=== PATIENT | female | born 1980 | race African-American/Black ===

== ENCOUNTER 2019-06-30 18:40 | Emergency (ER) | payer OTHER ==
[2019-06-30 19:05] VITALS: BP 148/84; PULSE 78; TEMP 97.9; BMI 61.3
--- NOTE | 2019-06-30 19:06 | PDOC ---
Rapid Medical Evaluation Chief Complaint: Sore Throat Time Seen by Provider: 06/30/19 19:02 Medical Evaluation: 06/30/19 19:03 I performed a brief in-person evaluation of this patient. 38-year-old female with asthma (no admissions x 20 yrs) and HTN with 3 weeks of throat pain, cough productive of green and blood-tinged sputum. Seen in Urgent Care and given a course of Tamiflu without positive flu test, which she completed. Symptoms persist. Pertinent physical exam findings: Alert, oriented. No pharyngeal erythema or tonsillar exudates. Lungs CTAB. I have ordered the following: CXR Patient to proceed to the ED for further evaluation. Discharge Disposition - Diagnosis Cough - Discharge Dispostion Condition at time of disposition: Stable - Referrals - Patient Instructions - Post Discharge Activity
--- NOTE | 2019-06-30 19:55 | PDOC ---
History of Present Illness - General Chief Complaint: Sore Throat Stated Complaint: SORE THROAT Time Seen by Provider: 06/30/19 19:02 History Source: Patient, Parent(s) Exam Limitations: Clinical Condition - History of Present Illness Is this a multiple visit Asthma Patient?: No Timing/Duration: reports: other (4 days) Past History - Past History Allergies/Adverse Reactions: Allergies amoxicillin Allergy (Verified 06/30/19 19:05) Penicillins Allergy (Verified 06/30/19 19:05) - Social History Smoking Status: Never smoked Review of Systems - Review of Systems Able to Perform ROS?: Yes Is the patient limited Austrian proficient: No Constitutional: Yes: Chills, Fever, Malaise HEENTM: Yes: Symptoms Reported, See HPI, Nose Congestion, Throat Pain. No: Eye Pain, Blurred Vision, Tearing, Recent change in vision, Double Vision, Cataracts , Ear Pain, Ocular Prothesis, Ear Discharge, Nose Pain, Tinnitus, Nose Bleeding , Hearing Loss, Throat Swelling, Mouth Pain, Dental Problems, Difficulty Swallowing, Mouth Swelling, Other Respiratory: Yes: Symptoms reported, See HPI, Cough. No: Orthopnea, Shortness of Breath, SOB with Exertion, SOB at Rest, Stridor, Wheezing, Productive cough, Hemoptysis, Other Cardiac (ROS): No: Symptoms Reported, See HPI, Chest Pain, Edema, Irregular Heart Rate, Lightheadedness, Palpitations, Syncope, Chest Tightness, Other ABD/GI: No: Symptoms Reported, See HPI, Constipated, Diarrhea, Nausea, Vomiting , Abdominal cramping All Other Systems: Reviewed and Negative *Physical Exam - Vital Signs Last Vital Signs Temp Pulse Resp BP Pulse Ox 97.9 F 78 18 148/84 100 06/30/19 19:02 06/30/19 19:02 06/30/19 19:02 06/30/19 19:02 06/30/19 19:02 - Physical Exam 06/30/19 19:54 GENERAL: Well developed, well nourished. Awake and alert. No acute distress. HEENT: Normocephalic, atraumatic. PERRLA, EOMI. No conjunctival pallor. Sclera are non-icteric. Moist mucous membranes. Oropharynx is clear. NECK: Supple. Full ROM. CARDIOVASCULAR: Regular rate and rhythm. No murmurs, rubs, or gallops. Distal pulses are 2+ and symmetric. PULMONARY: No evidence of respiratory distress. Lungs clear to auscultation bilaterally. No wheezing, rales or rhonchi. ABDOMINAL: Soft. Non-tender. Non-distended. No rebound or guarding. No organomegaly. Normoactive bowel sounds. MUSCULOSKELETAL Normal range of motion at all joints. SKIN: Warm and dry. Normal capillary refill. No rashes. No jaundice. NEUROLOGICAL: Alert, awake, appropriate. Gait is normal without ataxia. PSYCHIATRIC: Cooperative. Good eye contact. Appropriate mood General Appearance: Yes: Nourished, Appropriately Dressed. No: Apparent Distress Discharge - Discharge Information Clinical Impression/Diagnosis: Cough Condition: Stable - Follow up/Referral - Patient Discharge Instructions - Post Discharge Activity
--- NOTE | 2019-06-30 20:21 | PDOC ---
History of Present Illness - General Chief Complaint: Sore Throat Stated Complaint: SORE THROAT Time Seen by Provider: 06/30/19 19:02 History Source: Patient Exam Limitations: Clinical Condition - History of Present Illness Initial Comments: 06/30/19 20:53 Patient with no significant past medical history present with complaint of 2 weeks history of persistent cough, nasal congestion, sore throat and runny nose. Patient reported she was seen in urgent care over week ago for symptoms and was prescribed Tamiflu for suspected influenza infection but has not been getting better. Patient denies fevers. Reports cough intermittently productive with yellow sputum. Denies any sick contact or recent travel Is this a multiple visit Asthma Patient?: No Timing/Duration: other (2 weeks) Past History - Past Medical History Allergies/Adverse Reactions: Allergies Allergy/AdvReac Type Severity Reaction Status Date / Time amoxicillin Allergy Verified 06/30/19 19:05 Penicillins Allergy Verified 06/30/19 19:05 Home Medications: Ambulatory Orders Benzonatate [Tessalon Pearls -] 100 mg PO Q8H PRN #21 capsule 06/30/19 Ipratropium [place] 2 spray NS BID PRN 5 Days #1 spray 06/30/19 Methylprednisolone [Medrol Dose Derick] 4 mg PO ASDIR #21 tablet 06/30/19 Montelukast Na [Singulair -] 10 mg PO DAILY #7 tablet 06/30/19 - Psycho Social/Smoking Cessation Hx Smoking History: Never smoked Have you smoked in the past 12 months: No Information on smoking cessation initiated: No Hx Alcohol Use: No Drug/Substance Use Hx: No Review of Systems - Review of Systems Able to Perform ROS?: Yes Is the patient limited Frisian proficient: No Constitutional: Yes: Malaise. No: Chills, Fever HEENTM: Yes: Symptoms Reported, See HPI, Nose Congestion, Throat Pain. No: Eye Pain, Blurred Vision, Tearing, Recent change in vision, Double Vision, Cataracts , Ear Pain, Ocular Prothesis, Ear Discharge, Nose Pain, Tinnitus, Nose Bleeding , Hearing Loss, Throat Swelling, Mouth Pain, Dental Problems, Difficulty Swallowing, Mouth Swelling, Other Respiratory: Yes: Symptoms reported, See HPI, Cough. No: Orthopnea, Shortness of Breath, SOB with Exertion, SOB at Rest, Stridor, Wheezing, Productive cough, Hemoptysis, Other Cardiac (ROS): No: Symptoms Reported, See HPI, Chest Pain, Edema, Irregular Heart Rate, Lightheadedness, Palpitations, Syncope, Chest Tightness, Other ABD/GI: No: Symptoms Reported, See HPI, Constipated, Diarrhea, Nausea, Vomiting , Abdominal cramping All Other Systems: Reviewed and Negative *Physical Exam - Vital Signs Last Vital Signs Temp Pulse Resp BP Pulse Ox 97.9 F 78 18 148/84 100 06/30/19 19:02 06/30/19 19:02 06/30/19 19:02 06/30/19 19:02 06/30/19 19:02 - Physical Exam 06/30/19 20:21 GENERAL: Well developed, well nourished. Awake and alert. No acute distress. HEENT: Normocephalic, atraumatic. PERRLA, EOMI. No conjunctival pallor. Sclera are non-icteric. Moist mucous membranes. Oropharynx is clear. NECK: Supple. Full ROM. CARDIOVASCULAR: Regular rate and rhythm. No murmurs, rubs, or gallops. Distal pulses are 2+ and symmetric. PULMONARY: No evidence of respiratory distress. Lungs clear to auscultation bilaterally. No wheezing, rales or rhonchi. ABDOMINAL: Soft. Non-tender. Non-distended. No rebound or guarding. No organomegaly. Normoactive bowel sounds. MUSCULOSKELETAL Normal range of motion at all joints. SKIN: Warm and dry. Normal capillary refill. No rashes. No jaundice. NEUROLOGICAL: Alert, awake, appropriate. Gait is normal without ataxia. PSYCHIATRIC: Cooperative. Good eye contact. Appropriate mood General Appearance: Yes: Nourished, Appropriately Dressed. No: Apparent Distress Medical Decision Making - Medical Decision Making 06/30/19 20:54 Patient with no significant past medical history present with complaint of 2 weeks history of persistent cough, nasal congestion, sore throat and runny nose. Patient reported she was seen in urgent care over week ago for symptoms and was prescribed Tamiflu for suspected influenza infection but has not been getting better. Patient denies fevers. Reports cough intermittently productive with yellow sputum. Denies any sick contact or recent travel Exam unremarkable with lungs clear to auscultation bilateral. Patient afebrile. No pharyngeal erythema. Rapid strep test done negative for strep. Chest x-ray shows no pneumonia acute infiltrate. Patient symptoms likely viral URI and stable for discharge on Tessalon Perles as needed for cough and Medrol Derick due to cough over 2 weeks and Atrovent nasal spray for nasal congestion with advised to increase fluid intake and follow-up with primary care Discharge - Discharge Information Problems reviewed: Yes Clinical Impression/Diagnosis: Cough URI (upper respiratory infection) Qualifiers: URI type: unspecified URI Qualified Code(s): J06.9 - Acute upper respiratory infection, unspecified Pharyngitis Qualifiers: Pharyngitis/tonsillitis etiology: unspecified etiology Qualified Code(s): J02.9 - Acute pharyngitis, unspecified Condition: Stable Disposition: HOME - Admission No - Additional Discharge Information Prescriptions: Benzonatate [Tessalon Pearls -] 100 mg PO Q8H PRN #21 capsule PRN Reason: Cough Ipratropium [place] 2 spray NS BID PRN 5 Days #1 spray PRN Reason: nasal congestion Methylprednisolone [Medrol Dose Derick] 4 mg PO ASDIR #21 tablet Montelukast Na [Singulair -] 10 mg PO DAILY #7 tablet - Follow up/Referral - Patient Discharge Instructions Patient Printed Discharge Instructions: DI for Viral Upper Respiratory Infection -- Adult Additional Instructions: Your chest x-ray shows no pneumonia or bronchitis. symptoms likely caused by upper respiratory infection. Take prescribed medication as prescribed for cough and congestion. Increase fluid intake. Follow-up with primary care - Post Discharge Activity
== END 2019-06-30 21:28 | disposition home or self-care (01) ==
LOC: JERFT 18:40
DX: J06.9 Acute upper respiratory infection, unspecified (principal); J02.9 Acute pharyngitis, unspecified; Z88.0 Allergy status to penicillin
CPT/HCPCS: 71046-TC-FY; 87070; 87880; 99281-25

== ENCOUNTER 2022-09-07 15:24 | Emergency (ER) | payer OTHER ==
[2022-09-07 15:29] VITALS: RESP 18; BMI 59.5
[2022-09-07 17:12] LABS: BASO % 0.6 % (0-2.0); EOS % 8.2 % (0-4.5); HEMATOCRIT 37.1 % (32.4-45.2); LYMPH % 36.9 % (8-40); MCH 25.9 pg (25.7-33.7); MCHC 32.4 g/dl (32.0-36.0); MEAN PLT VOLUME 8.7 fl (7.5-11.1); MONO % 13.4 % (3.8-10.2); NEUT % 40.9 % (42.8-82.8); PLATELET COUNT 235 10^3/uL (134-434); RBC 4.64 M/mm3 (3.60-5.2); RDW 14.7 % (11.6-15.6); WHITE BLOOD COUNT 4.6 K/mm3 (4.0-10.0)
[2022-09-07 17:14] LABS: EPI CELLS >36 /uL (0-25.1); HYALINE CASTS 2 /uL (0-3.1); URINE APPEARANCE CLOUDY; URINE BACTERIA 683 /uL (0-1359); URINE BILIRUBIN NEGATIVE (NEGATIVE); URINE COLOR ORANGE; URINE GLUCOSE (UA) NEGATIVE (NEGATIVE); URINE KETONE NEGATIVE (NEGATIVE); URINE LEUK ESTERASE 1+ (NEGATIVE); URINE NITRITE NEGATIVE (NEGATIVE); URINE PROTEIN 1+ (NEGATIVE); URINE RBC 4600 /uL (0-23.9); URINE WBC 94 /uL (0-25.8)
[2022-09-07 17:31] LABS: ALBUMIN 3.5 g/dl (3.4-5.0); BLOOD UREA NITROGEN 10.6 mg/dL (7-18); CALCIUM 9.4 mg/dL (8.5-10.1)
[2022-09-07 17:34] LABS: CREATININE 0.9 mg/dL (0.55-1.3)
[2022-09-07 17:37] LABS: BILIRUBIN,TOTAL 0.4 mg/dL (0.2-1); TOT PROT 8.2 g/dl (6.4-8.2)
[2022-09-07] MEDS ORDERED: SULFAMETHOXAZOLE/TRIMETHOPRIM 800MG/160MG D.S. TABLET PO ONE (18:28)
[2022-09-07] MEDS ORDERED: ACETAMINOPHEN 1000 MG/100 ML BAG IVPB ONE (18:37)
[2022-09-07] MEDS ORDERED: SULFAMETHOXAZOLE/TRIMETHOPRIM 800MG/160MG D.S. TABLET ONE (18:43)
[2022-09-07] MEDS ORDERED: ACETAMINOPHEN INJECTION 100 ML IVPB ONE (18:43)
[2022-09-07] MEDS ORDERED: KETOROLAC TROMETHAMINE 30 MG/1 ML VIAL IVPUSH ONE (22:52)
[2022-09-07] MEDS ORDERED: KETOROLAC TROMETHAMINE 30 MG/1 ML VIAL ONE (22:55)
[2022-09-07 23:57] VITALS: BP 129/79; PULSE 84; TEMP 97.9
== END 2022-09-08 | disposition home or self-care (01) ==
LOC: JER 15:24
PROC: 3E033NZ Introduction of Analgesics, Hypnotics, Sedatives into Peripheral Vein, Percutaneous Approach (ICD-10-PCS; principal; 2022-09-07)
PROC: 3E0333Z Introduction of Anti-inflammatory into Peripheral Vein, Percutaneous Approach (ICD-10-PCS; 2022-09-07)
DX: D25.9 Leiomyoma of uterus, unspecified (principal); N39.0 Urinary tract infection, site not specified; K57.90 Diverticulosis of intestine, part unspecified, without perforation or abscess without bleeding
CPT/HCPCS: 36415; 74177-TC; 76830-TC; 80053; 81003; 83605; 83690; 84703; 85025; 87086; 99285-25; Q9967